=== PATIENT | female | born 1935 | race Caucasian/White ===

== ENCOUNTER 2017-08-28 04:10 | Inpatient (IN) | payer OTHER ==
[~2017-08-28] VITALS: Ht 152.4 cm; Wt 56.3 kg
[2017-08-28 04:18] VITALS: Ht 152.4 cm; Wt 56.3 kg
[2017-08-28 05:12] LABS: BASOPHIL % 0.9 % (0-2)
[2017-08-28 05:16] LABS: PLATELET COUNT 118 x10^3mcL (130-400); RED CELL DISTRIBUTION WIDTH 19.9 % (11.5-14.5)
[2017-08-28 05:35] LABS: ALKALINE PHOSPHATASE 74 U/L (46-116); ALT/SGPT 37 U/L (14-59); AST/SGOT 21 U/L (15-37); BILIRUBIN TOTAL 0.4 mg/dL (0.20-1.00); CALCIUM 8.8 mg/dL (8.5-10.1); CARBON DIOXIDE 21.5 mmol/L (21-32); CHLORIDE SERUM 106 mmol/L (98-107); FREE T4 1.07 ng/dL (0.76-1.46); GLUCOSE SERUM 116 mg/dL (74-106); POTASSIUM SERUM 3.6 mmol/L (3.5-5.1); SODIUM SERUM 141 mmol/L (136-145)
[2017-08-28 05:38] LABS: ALBUMIN 2.8 g/dL (3.4-5.0)
[2017-08-28 05:39] LABS: CREATININE SERUM 6.1 mg/dL (0.6-1.0)
[2017-08-28 07:15] LABS: MAGNESIUM 1.9 mg/dL (1.8-2.4); PHOSPHOROUS 5.1 mg/dL (2.5-4.9)
[2017-08-28 07:43] LABS: FREE T4 1.09 ng/dL (0.76-1.46); FREE THYROXINE INDEX 2.8 ug/dL (1.4-4.5); T4(THYROXINE) 8.2 ug/dL (4.7-13.3)
[2017-08-28 08:00] VITALS: BP 202/91
[2017-08-28 09:09] LABS: T3 TOTAL 0.75 ng/mL
[2017-08-28] MEDS ORDERED: HYDRALAZINE HCL25 MG PO (09:10)
[2017-08-28] MEDS ORDERED: CLONIDINE HCL0.2 MG (09:21)
[2017-08-28] MEDS ORDERED: ISOSORBIDE MONO60 MG PO (09:22)
[2017-08-28] MEDS ORDERED: CELEXA20 MG PO (09:23)
[2017-08-28] MEDS ORDERED: CARVEDILOL12.5 M1 PO (09:25)
[2017-08-28] MEDS ORDERED: ATORVASTATIN CA40 M1 PO (09:27)
[2017-08-28 09:46] LABS: IRON 42 ug/dL (50-170)
[2017-08-28 09:47] LABS: TOTAL IRON BINDING CAPACITY 170 ug/dL (250-450)
[2017-08-28 09:53] VITALS: BP 196/86
[2017-08-28 10:02] LABS: RED BLOOD CELLS 2.69 M/mm3 (4.10-5.10)
[2017-08-28 12:15] VITALS: BP 191/85
[2017-08-28 12:15] LABS: microscopic required? YES; urine erythrocyte NEGATIVE (NEGATIVE)
[2017-08-28 16:17] VITALS: BP 157/65
[2017-08-28 18:28] LABS: CALCIUM 8.5 mg/dL (8.5-10.1); CARBON DIOXIDE 20.3 mmol/L (21-32); CHLORIDE SERUM 105 mmol/L (98-107); GLUCOSE SERUM 175 mg/dL (74-106); POTASSIUM SERUM 3.6 mmol/L (3.5-5.1); SODIUM SERUM 139 mmol/L (136-145)
[2017-08-28 18:30] LABS: CREATININE SERUM 6.1 mg/dL (0.6-1.0)
[2017-08-28 23:44] VITALS: BP 144/57
[2017-08-29 03:08] VITALS: BP 124/72
[2017-08-29] MEDS ORDERED: ISOSORBIDE MONO30 MG PO (05:29)
[2017-08-29 05:31] LABS: BASOPHIL % 0.4 % (0-2)
[2017-08-29 05:32] LABS: PLATELET COUNT 106 x10^3mcL (130-400); RED CELL DISTRIBUTION WIDTH 20.4 % (11.5-14.5)
[2017-08-29 05:33] LABS: rbc morphology (normal/abnorm) ABNORMAL (NORMAL)
[2017-08-29 05:40] LABS: CALCIUM 8.1 mg/dL (8.5-10.1); CARBON DIOXIDE 22.1 mmol/L (21-32); CHLORIDE SERUM 106 mmol/L (98-107); GLUCOSE SERUM 121 mg/dL (74-106); MAGNESIUM 1.8 mg/dL (1.8-2.4); PHOSPHOROUS 5.6 mg/dL (2.5-4.9); POTASSIUM SERUM 3.6 mmol/L (3.5-5.1); SODIUM SERUM 142 mmol/L (136-145)
[2017-08-29 07:42] VITALS: BP 152/64
[2017-08-29 11:32] VITALS: BP 135/63
[2017-08-29 15:45] VITALS: BP 141/67
[2017-08-29 17:26] VITALS: BP 176/68
[2017-08-29 20:35] VITALS: BP 178/66
[2017-08-29 21:52] LABS: RED CELL DISTRIBUTION WIDTH 22.9 % (11.5-14.5)
[2017-08-29 21:53] LABS: BASOPHIL % 2.1 % (0-2); PLATELET COUNT 105 x10^3mcL (130-400)
[2017-08-30] VITALS (7 sets, daily range): BP systolic 124–189; BP diastolic 54–77
[2017-08-30 06:06] LABS: CALCIUM 8.3 mg/dL (8.5-10.1); CARBON DIOXIDE 21.6 mmol/L (21-32); CHLORIDE SERUM 102 mmol/L (98-107); GLUCOSE SERUM 124 mg/dL (74-106); MAGNESIUM 1.9 mg/dL (1.8-2.4); PHOSPHOROUS 5.6 mg/dL (2.5-4.9); POTASSIUM SERUM 3.5 mmol/L (3.5-5.1); SODIUM SERUM 136 mmol/L (136-145)
[2017-08-30 06:48] LABS: BASOPHIL % 0.5 % (0-2)
[2017-08-30 06:51] LABS: PLATELET COUNT 109 x10^3mcL (130-400); RED CELL DISTRIBUTION WIDTH 23.2 % (11.5-14.5)
[2017-08-30 07:10] LABS: CREATININE SERUM 5.9 mg/dL (0.6-1.0)
[2017-08-30 07:57] LABS: rbc morphology (normal/abnorm) ABNORMAL (NORMAL)
[2017-08-31 05:53] VITALS: BP 170/73
[2017-08-31 06:30] VITALS: BP 165/63
[2017-08-31 06:43] LABS: CALCIUM 7.7 mg/dL (8.5-10.1); CHLORIDE SERUM 101 mmol/L (98-107); GLUCOSE SERUM 131 mg/dL (74-106); MAGNESIUM 1.6 mg/dL (1.8-2.4); SODIUM SERUM 138 mmol/L (136-145)
[2017-08-31 06:46] LABS: POTASSIUM SERUM 2.8 mmol/L (3.5-5.1)
[2017-08-31 06:47] LABS: CREATININE SERUM 4.1 mg/dL (0.6-1.0)
[2017-08-31 06:51] LABS: BASOPHIL % 0.4 % (0-2)
[2017-08-31 06:52] LABS: PLATELET COUNT 99 x10^3mcL (130-400)
[2017-08-31 07:08] LABS: rbc morphology (normal/abnorm) ABNORMAL (NORMAL)
[2017-08-31 07:09] LABS: burr cell (echinocyte) 1+; ovalocyte/elliptocyte 1+; tear drop cell (dacryocyte) 1+
[2017-08-31 08:52] VITALS: BP 168/64
[2017-08-31] MEDS ORDERED: FER300 PO (10:14)
[2017-08-31] MEDS ORDERED: CAT0.1 PO (10:15)
[2017-08-31] MEDS ORDERED: APR25 PO (10:15)
[2017-08-31] MEDS ORDERED: METOPROLOL TART25 M1 PO (10:16)
[2017-08-31] MEDS ORDERED: NOR10 PO (10:17)
[2017-08-31] MEDS ORDERED: ZES5 PO (10:17)
[2017-08-31] MEDS ORDERED: ECO81 PO (10:18)
[2017-08-31] MEDS ORDERED: PHOS PO (10:18)
[2017-08-31] MEDS ORDERED: L40 PO (10:20)
[2017-08-31] MEDS ORDERED: VITC PO (10:20)
[2017-08-31] MEDS ORDERED: NEPHRO-VITE VITA1 EA PO (12:59)
[2017-08-31 13:14] VITALS: BP 150/67
[2017-08-31 16:22] VITALS: BP 139/55
[2017-08-31 20:58] VITALS: BP 161/65
[2017-09-01 06:15] VITALS: BP 169/72
[2017-09-01 07:22] LABS: BASOPHIL % 0.6 % (0-2)
[2017-09-01 07:29] LABS: PLATELET COUNT 99 x10^3mcL (130-400); RED CELL DISTRIBUTION WIDTH 22.3 % (11.5-14.5)
[2017-09-01 07:39] LABS: CALCIUM 7.9 mg/dL (8.5-10.1); CARBON DIOXIDE 25.8 mmol/L (21-32); CHLORIDE SERUM 101 mmol/L (98-107); GLUCOSE SERUM 130 mg/dL (74-106); MAGNESIUM 1.8 mg/dL (1.8-2.4); PHOSPHOROUS 3.6 mg/dL (2.5-4.9); POTASSIUM SERUM 3.6 mmol/L (3.5-5.1); SODIUM SERUM 136 mmol/L (136-145)
[2017-09-01 07:51] LABS: CREATININE SERUM 4.2 mg/dL (0.6-1.0)
[2017-09-01 08:24] LABS: rbc morphology (normal/abnorm) ABNORMAL (NORMAL)
[2017-09-01 08:25] LABS: burr cell (echinocyte) 1+; ovalocyte/elliptocyte 2+; tear drop cell (dacryocyte) 1+
[2017-09-01 09:05] VITALS: BP 181/73
[2017-09-01 12:35] VITALS: BP 145/66
[2017-09-01 13:11] VITALS: BP 145/66
[2017-09-01 19:52] VITALS: BP 156/62
[2017-09-02 05:30] VITALS: BP 169/65
[2017-09-02 07:52] LABS: BASOPHIL % 0.8 % (0-2)
[2017-09-02 07:53] LABS: PLATELET COUNT 97 x10^3mcL (130-400); RED CELL DISTRIBUTION WIDTH 22.4 % (11.5-14.5)
[2017-09-02 07:54] LABS: rbc morphology (normal/abnorm) ABNORMAL (NORMAL)
[2017-09-02 07:55] LABS: burr cell (echinocyte) 1+; ovalocyte/elliptocyte 1+; tear drop cell (dacryocyte) 1+
[2017-09-02 08:38] VITALS: BP 180/82
[2017-09-02 08:49] LABS: CALCIUM 7.7 mg/dL (8.5-10.1); CARBON DIOXIDE 25.8 mmol/L (21-32); CHLORIDE SERUM 99 mmol/L (98-107); GLUCOSE SERUM 126 mg/dL (74-106); MAGNESIUM 1.8 mg/dL (1.8-2.4); PHOSPHOROUS 3.7 mg/dL (2.5-4.9); POTASSIUM SERUM 3.8 mmol/L (3.5-5.1); SODIUM SERUM 134 mmol/L (136-145)
[2017-09-02 09:13] LABS: CREATININE SERUM 4.3 mg/dL (0.6-1.0)
[2017-09-02 11:05] VITALS: BP 151/62
[2017-09-02 11:12] VITALS: BP 151/62
[2017-09-02] MEDS ORDERED: ZES5 PO (11:21)
[2017-09-02] MEDS ORDERED: CAT0.1 PO (11:22)
== END 2017-09-02 11:53 | disposition home or self-care (01) | DRG 291 ==
LOC: ED 04:10 → DU 06:13 → IC 06:13 → EDBEDREQ 06:17 → EDBEDREQSVC 06:17 → IC 07:26 → DU 08-29 17:00 → MU 09-01 19:44
PROVIDERS: Emergency Medicine; Family Medicine; Surgery
PROC: 30233N1 Transfusion of Nonautologous Red Blood Cells into Peripheral Vein, Percutaneous Approach (ICD-10-PCS; 2017-08-29)
PROC: B5131ZA Fluoroscopy of Right Jugular Veins using Low Osmolar Contrast, Guidance (ICD-10-PCS; 2017-08-30)
PROC: 5A1D70Z Performance of Urinary Filtration, Intermittent, Less than 6 Hours Per Day (ICD-10-PCS; 2017-08-30)
PROC: 05HM33Z Insertion of Infusion Device into Right Internal Jugular Vein, Percutaneous Approach (ICD-10-PCS; principal; 2017-08-30 12:30)
DX: I13.2 Hypertensive heart and chronic kidney disease with heart failure and with stage 5 chronic kidney disease, or end stage renal disease (principal); N18.6 End stage renal disease; I50.43 Acute on chronic combined systolic (congestive) and diastolic (congestive) heart failure; E43 Unspecified severe protein-calorie malnutrition; N17.0 Acute kidney failure with tubular necrosis; I16.1 Hypertensive emergency; E87.1 Hypo-osmolality and hyponatremia; E11.22 Type 2 diabetes mellitus with diabetic chronic kidney disease; M94.0 Chondrocostal junction syndrome [Tietze]; E87.6 Hypokalemia; E83.42 Hypomagnesemia; E83.39 Other disorders of phosphorus metabolism; E11.51 Type 2 diabetes mellitus with diabetic peripheral angiopathy without gangrene; I08.1 Rheumatic disorders of both mitral and tricuspid valves; D50.9 Iron deficiency anemia, unspecified; D69.6 Thrombocytopenia, unspecified; E78.5 Hyperlipidemia, unspecified; F32.9 Major depressive disorder, single episode, unspecified; Z68.23 Body mass index [BMI] 23.0-23.9, adult; Z91.19 Patient's noncompliance with other medical treatment and regimen
CPT/HCPCS: 82962; 83880; 84439; 86580; 87804; A4301; A9500; J0360; J0690; J0885-EC; J1644; J1940; J2001; J2150; J2250; J2785; J2916; J3010; J3475; J3490; J7030; J7050; J7620; P9016; Q0092; Q0163

== ENCOUNTER 2017-09-02 13:34 | Emergency (ER) | payer OTHER ==
[~2017-09-02] VITALS: Ht 152.4 cm; Wt 54.4 kg
[~2017-09-02 13:34] MED LIST: APR25 PO; ATORVASTATIN CA40 M1 PO; CARVEDILOL12.5 M1 PO; CAT0.1 PO; CELEXA20 MG PO; CLONIDINE HCL0.2 MG; ECO81 PO; FER300 PO; HYDRALAZINE HCL25 MG PO; ISOSORBIDE MONO30 MG PO; ISOSORBIDE MONO60 MG PO; L40 PO; METOPROLOL TART25 M1 PO; NEPHRO-VITE VITA1 EA PO; NOR10 PO; PHOS PO; VITC PO; ZES5 PO
[2017-09-02 13:38] VITALS: Ht 152.4 cm; Wt 54.4 kg
[2017-09-02 14:49] LABS: BASOPHIL % 0.9 % (0-2)
[2017-09-02 14:53] LABS: PLATELET COUNT 106 x10^3mcL (130-400); RED CELL DISTRIBUTION WIDTH 20.6 % (11.5-14.5)
[2017-09-02 15:31] LABS: ovalocyte/elliptocyte 1+; rbc morphology (normal/abnorm) ABNORMAL (NORMAL)
[2017-09-02 15:47] LABS: ALBUMIN 2.7 g/dL (3.4-5.0); ALKALINE PHOSPHATASE 62 U/L (46-116); ALT/SGPT 16 U/L (14-59); AST/SGOT 17 U/L (15-37); BILIRUBIN TOTAL 0.4 mg/dL (0.20-1.00); CARBON DIOXIDE 25.4 mmol/L (21-32); CHLORIDE SERUM 97 mmol/L (98-107); GLUCOSE SERUM 124 mg/dL (74-106); POTASSIUM SERUM 3.7 mmol/L (3.5-5.1); SODIUM SERUM 131 mmol/L (136-145); TOTAL PROTEIN, SERUM 5.5 g/dL (6.4-8.2)
[2017-09-02 15:49] LABS: CREATININE SERUM 4.4 mg/dL (0.6-1.0)
[2017-09-02 16:13] VITALS: BP 158/68
== END 2017-09-02 16:13 | disposition home or self-care (01) ==
LOC: ED 13:34
PROVIDERS: Emergency Medicine
DX: T82.838A Hemorrhage due to vascular prosthetic devices, implants and grafts, initial encounter (principal); Y92.89 Other specified places as the place of occurrence of the external cause
CPT/HCPCS: 36415